=== PATIENT | male | born 1985 | race Caucasian/White ===

== ENCOUNTER 2024-07-24 21:39 | Emergency (ER) | payer OTHER ==
[~2024-07-24] VITALS: Ht 182.9 cm; Wt 90.7 kg
[2024-07-25] MEDS ORDERED: ACETAMINOPHEN ES 500 MG TABLET ONE (01:27)
[2024-07-25] MEDS ORDERED: ACETAMINOPHEN 325 MG TABLET PO ONE (01:30)
[2024-07-25] MEDS ORDERED: IBUPROFEN 400 MG TABLET ONE (01:34)
[2024-07-25] MEDS: IBUPROFEN 400 MG TABLET PO ONE (01:44)
[2024-07-25 02:32] VITALS: BP 137/82; TEMP 102.3; O2SAT 100
== END 2024-07-25 02:33 | disposition home or self-care (01) ==
LOC: ER 22:01
DX: B34.9 Viral infection, unspecified (principal); R50.9 Fever, unspecified; Z20.822 Contact with and (suspected) exposure to COVID-19